=== PATIENT | female | born 1975 | race Caucasian/White ===

== ENCOUNTER → 2019-12-05 | Outpatient (CLI) | payer OTHER ==
--- NOTE | 2019-12-12 09:29 | REP ---
BILATERAL SCREENING MAMMOGRAPHY WITH 3D TOMOSYNTHESIS: BASELINE STUDY HISTORY: No family history of breast cancer. [facility] risk of [facility] cancer 11.3%. History of bilateral breast reduction in 2000. TECHNIQUE: Bilateral mammogram performed in the MLO and CC projections with 3D tomosynthesis. Moderate fibroglandular tissue is seen bilaterally. Vol[place] breast density is B. At 6 o'clock in the left breast in the mid third, there is a smoothly marginated nodule 1.1 cm in diameter. No other mass or architectural distortion is seen bilaterally. No suspicious clusters of microcalcifications are seen bilaterally. IMPRESSION: ACR 0 incomplete. There is a 1.1 cm smoothly marginated nodule at 6 o'clock in the left breast. Recommend spot compression views and ultrasound to further evaluate. This mammogram was interpreted with the aid of an FDA approved computer-aided detection system. The patient states her last clinical breast exam was over one year ago. Patient letter: 0. MTDD
== END ==
LOC: M WHC 14:21
PROVIDERS: ATTEND Physician Assistant
DX: Z12.31 Encounter for screening mammogram for malignant neoplasm of breast (principal)

== ENCOUNTER → 2020-02-15 | Outpatient (CLI) | payer OTHER ==
[~2020-02-15] MED LIST: MAPA500T2 PO
--- NOTE | 2020-02-15 17:03 | REP ---
INDICATION: R92.8 ABN MAMMO LT BREAST,US GUIDED BIOPSY. COMPARISON: None. TECHNIQUE: The procedure was performed under the general supervision of Dr. Chirinos. The patient has a history of a 1.1 x 1 x 0.7 cm hypoechoic nodule in the 6 o'clock position of the left breast seen on a previous ultrasound dated 12/15/2019. The risks and benefits of the procedure were explained to the patient and informed consent was obtained. The left breast nodule was localized using ultrasound guidance. The skin was prepped and draped in a sterile fashion. 1% Xylocaine was used as a local anesthetic. Using ultrasound guidance a 14 gauge coaxial needle biopsy system was inserted and6 core biopsy samples were obtained. A marker clip was placed at the biopsy site The patient tolerated the procedure well and there were no immediate complications. After the appropriate amount of monitored convalescence, the patient was discharged from the department. FINDINGS: None IMPRESSION: Technically successful ultrasound-guided left breast biopsy with marker clip placement. <Electronically signed by Elder Glover > 02/15/20 1600 <Electronically signed by Lamont Chirinos > 02/15/20 [id number]
--- NOTE | 2020-02-15 17:08 | REP ---
INDICATION: R92.8 ABN MAMMO LT BREAST,US GUIDED BIOPSY,POST BX. COMPARISON: 12/15/2019. TECHNIQUE: ML and CC views left breast performed following ultrasound-guided biopsy of a left breast nodule. FINDINGS: The biopsy clip is visualized at the site of the nodule in the inferomedial left breast. IMPRESSION: Successful ultrasound-guided biopsy of left breast nodule. RECOMMENDATION: Clinical follow-up. <Electronically signed by Lamont Chirinos > 02/15/20 [id number]
[2020-02-15 17:59] VITALS: BP 130/72
== END ==
LOC: M WHCPRO 12:50
PROVIDERS: ATTEND Surgery
DX: N60.12 Diffuse cystic mastopathy of left breast (principal); R92.8 Other abnormal and inconclusive findings on diagnostic imaging of breast

== ENCOUNTER → 2020-08-09 | Outpatient (CLI) | payer OTHER ==
--- NOTE | 2020-08-13 13:10 | REP ---
INDICATION: R92.8 ABN MAMMO LT BREAST,6 MO F/U,S/P BENIGN BX; R92.8 ABN MAMMO LT BREAST,6 MO F/O/S/P BENIGN BX. COMPARISON: 12/05/2019 as well as other prior exams. TECHNIQUE: MLO and CC views left breast performed with tomosynthesis, focused left breast ultrasound performed at 6 o'clock. FINDINGS: Mild scattered fibroglandular tissue is unchanged. A smoothly marginated nodule at 6 o'clock is unchanged measuring 1.1 cm in diameter. There is no new mass or clustered microcalcifications. Real-time sonographic evaluation of left breast at 6 o'clock demonstrates a stable 1.1 cm solid nodular structure with a biopsy clip along its margin. Volpara breast density B. IMPRESSION: BIRADS/ACR category 2, benign. Stable smoothly marginated nodule at 6 o'clock position both mammographically and sonographically. [facility] lifetime risk of breast cancer 11.1%. This mammogram was interpreted with the aid of an FDA-approved computer-aided detection system. The patient letter being requested is M 1. RECOMMENDATION: Follow-up bilateral mammogram recommended November 2020. <Electronically signed by Lamont Chirinos > 08/13/20 [id number]
== END ==
LOC: M WHC 14:49
PROVIDERS: ATTEND Surgery
DX: R92.8 Other abnormal and inconclusive findings on diagnostic imaging of breast (principal)
CPT/HCPCS: 76642; 77065; G0279

== ENCOUNTER 2021-03-20 11:18 | Emergency (ER) | payer OTHER ==
[~2021-03-20] VITALS: Ht 170.2 cm; Wt 97.6 kg
[2021-03-20] MEDS ORDERED: DICY10CA13 (11:57)
[2021-03-20] MEDS ORDERED: LEVO150T7 (11:57)
[2021-03-20] MEDS ORDERED: CYCL-707 (11:57)
[2021-03-20] MEDS ORDERED: JANU50TA25 (11:57)
[2021-03-20] MEDS ORDERED: VENL75CA47 (11:57)
[2021-03-20] MEDS ORDERED: ATOR40TA75 (11:57)
[2021-03-20] MEDS ORDERED: LISI10TA22 (11:57)
[2021-03-20] MEDS ORDERED: PANT40TA29 (11:57)
[2021-03-20] MEDS ORDERED: NAPR-1182 (11:57)
[2021-03-20] MEDS ORDERED: KETOROLAC 30 MG/ML 1ML VIAL IM ONE (18:35)
[2021-03-20] MEDS ORDERED: methocarbamoL 500 MG TAB PO ONE (18:35)
[2021-03-20] MEDS ORDERED: LIDOCAINE 5% (LIDODERM) PATCH TD ONE (18:35)
[2021-03-20 19:16] VITALS: BP 137/78
[2021-03-20] MEDS ORDERED: **NOTE PATIENT COMMENT** MISC XX SCH (21:00)
== END 2021-03-20 19:24 | disposition home or self-care (01) ==
LOC: M ED 11:18
DX: S09.90XA Unspecified injury of head, initial encounter (principal); M54.50 Low back pain, unspecified; M85.88 Other specified disorders of bone density and structure, other site; M54.2 Cervicalgia; K21.9 Gastro-esophageal reflux disease without esophagitis; I10 Essential (primary) hypertension; F41.8 Other specified anxiety disorders; F17.200 Nicotine dependence, unspecified, uncomplicated; Z88.2 Allergy status to sulfonamides; Z88.0 Allergy status to penicillin; Z79.899 Other long term (current) drug therapy; W01.0XXA Fall on same level from slipping, tripping and stumbling without subsequent striking against object, initial encounter; Y92.9 Unspecified place or not applicable; Y93.9 Activity, unspecified; Y99.0 Civilian activity done for income or pay
CPT/HCPCS: 70450; 72072; 72110; 72125; 96372; 99284; J1885

== ENCOUNTER → 2021-12-09 | Outpatient (REF) | payer OTHER ==
[~2021-12-09] MED LIST changes: +ATOR40TA75; +CYCL-707; +DICY10CA13; +JANU50TA25; +LEVO150T7; +LISI10TA22; +NAPR-1182; +PANT40TA29; +VENL75CA47
[2021-12-09 17:34] LABS: BLOOD UREA NITROGEN 13 MG/DL (7-18); CALCIUM LEVEL 9.6 MG/DL (8.5-10.1); CARBON DIOXIDE LEVEL 25 MEQ/L (21-32); CHLORIDE LEVEL 105 MEQ/L (98-107); CHOLESTEROL LEVEL 171 MG/DL (<200); GLOMERULAR FILTRATION RATE > 60.0 (>58); GLUCOSE, FASTING 160 MG/DL (70-100); HDL CHOLESTEROL 50 MG/DL (>40); LDL CHOLESTEROL 61 MG/DL (<100); NON-HDL-C 121 MG/DL; POTASSIUM SERUM 4.6 MEQ/L (3.5-5.1); SODIUM LEVEL 137 MEQ/L (136-145); TRIGLYCERIDES LEVEL 298 MG/DL (<150)
[2021-12-09 17:39] LABS: HEMOGLOBIN A1c 6.9 %
[2021-12-09 18:23] LABS: MALB URINE SIEMENS 15.3 MG/L; MAU/CREAT RATIO 7.4 MCG/MG (0.0-30.0)
== END ==
LOC: M LAB REF 16:18
PROVIDERS: ATTEND Physician Assistant
DX: E11.9 Type 2 diabetes mellitus without complications (principal)

== ENCOUNTER → 2022-01-06 | Outpatient (CLI) | payer OTHER | LOC: M WHC 14:38 | PROVIDERS: ATTEND Physician Assistant | DX: Z12.31 Encounter for screening mammogram for malignant neoplasm of breast (principal) ==

== ENCOUNTER → 2022-04-01 | Outpatient (REF) | payer OTHER | LOC: M PLALAB 11:44 | PROVIDERS: ATTEND Nurse Practitioner Family | DX: Z12.4 Encounter for screening for malignant neoplasm of cervix (principal) | CPT/HCPCS: 87624; G0123; G0463 ==

== ENCOUNTER → 2022-08-20 | Outpatient (REF) | payer OTHER ==
[2022-08-20 18:17] LABS: CREATININE, URINE 129.1 MG/DL; MAU/CREAT RATIO 61.9 MCG/MG (0.0-30.0)
[2022-08-20 18:30] LABS: HEMOGLOBIN 11.7 g/dl (12.0-15.5); MEAN CORPUSCULAR HEMOGLOBIN 22.5 pg (27.0-33.0); MEAN CORPUSCULAR HGB CONC 29.3 g/dl (32.0-36.5); MEAN CORPUSCULAR VOLUME 77.1 fl (80.0-96.0); PLATELET COUNT, AUTOMATED 557 10^3/uL (150-450); RED BLOOD COUNT 5.19 10^6/uL (4.00-5.40); WHITE BLOOD COUNT 7.5 10^3/uL (4.0-10.0)
[2022-08-20 18:55] LABS: ALBUMIN 3.5 G/DL (3.2-5.2); ALKALINE PHOSPHATASE 70 U/L (46-116); ALT/SGPT 30 U/L (7.0-40); AST/SGOT 17 U/L (<34); BILIRUBIN,TOTAL 0.2 MG/DL (0.3-1.2); BLOOD UREA NITROGEN 16 MG/DL (9-23); CALCIUM LEVEL 9.6 MG/DL (8.5-10.1); CARBON DIOXIDE LEVEL 24 MMOL/L (20-31); CHLORIDE LEVEL 104 MMOL/L (98-107); CHOLESTEROL LEVEL 225 MG/DL (<200); CHOLESTEROL RISK RATIO 5.05 (<5); CREATININE FOR GFR 0.68 MG/DL (0.55-1.30); GLOMERULAR FILTRATION RATE > 60.0 (>58); GLUCOSE, FASTING 244 MG/DL (60-100); HDL CHOLESTEROL 44.5 MG/DL (>40); LDL CHOLESTEROL 107.7 MG/DL (<100); NON-HDL-C 180.5 MG/DL; POTASSIUM SERUM 4.9 MMOL/L (3.5-5.1); SODIUM LEVEL 136 MMOL/L (136-145); TOTAL PROTEIN 6.8 G/DL (5.7-8.2); TRIGLYCERIDES LEVEL 364 MG/DL (<150)
[2022-08-20 18:56] LABS: FOLLICLE STIMULATING HORMONE 11.1 mIU/ML; LUTEINIZING HORMONE 7.6 mIU/ML; PROGESTERONE 0.92 NG/ML
[2022-08-20 21:10] LABS: HEMOGLOBIN A1c 8.9 % (4.0-6.0)
== END ==
LOC: M LAB REF 16:18
PROVIDERS: ATTEND Physician Assistant
DX: E11.9 Type 2 diabetes mellitus without complications (principal); N30.00 Acute cystitis without hematuria; N92.6 Irregular menstruation, unspecified